=== PATIENT | male | born 1935 | race Caucasian/White ===

== ENCOUNTER 2017-01-02 11:47 | Inpatient (IN) | payer MEDICARE, BC ==
[~2017-01-02] VITALS: Ht 175.3 cm; Wt 94.1 kg
[2017-01-08] VITALS (12 sets, daily range): BP systolic 112–139; BP diastolic 51–82; PULSE 65–105; TEMP 97.5–98.2
[2017-01-08] MEDS ORDERED: LIPITOR 40MG TA40 MG PO (06:27)
[2017-01-08] MEDS ORDERED: ARICEPT10 MG PO (06:27)
[2017-01-08] MEDS ORDERED: FERROUS SU325 MG/TAB PO (06:27)
[2017-01-08] MEDS ORDERED: OMEGA-3 1000 MG1 CAP PO (06:28)
[2017-01-08] MEDS ORDERED: COMPLETE SENIOR1 TA1 PO (06:28)
[2017-01-08] MEDS ORDERED: ASPIRIN E.C. 8181 MG PO (06:28)
[2017-01-08 07:01] LABS: HEMATOCRIT 28.8 % (42.0-52.0); HEMOGLOBIN 8.3 g/dl (13.5-18.0)
[2017-01-09] VITALS (15 sets, daily range): BP systolic 90–155; BP diastolic 50–81; PULSE 45–110; TEMP 97.3–99.6
[2017-01-09 07:53] LABS: MEAN CORPUSCULAR HGB CONC 28 g/dl (33.0-37.0); MEAN PLATELET VOLUME 10.6 fl (7.4-10.4); PLATELET COUNT 266 K/mm3 (130-400); RED BLOOD COUNT 3.63 M/mm3 (4.20-5.60); WHITE BLOOD COUNT 13.7 K/mm3 (4.8-10.8)
[2017-01-09 07:58] LABS: HEMOGLOBIN 7.1 g/dl (13.5-18.0); MEAN CORPUSCULAR HEMOGLOBIN 20 pg (27.0-31.0)
[2017-01-09 08:07] LABS: CREATININE, serum 1.1 mg/dL (0.66-1.25); POTASSIUM 4.1 mmol/L (3.4-5.0)
[2017-01-09 09:34] LABS: MEAN CELL VOLUME 69 fl (80.0-100.0)
[2017-01-09 09:36] LABS: REDCELL DISTRIBUTION WIDTH-CV 19.2 % (11.5-14.5)
[2017-01-09 16:11] LABS: PH 5 (5-8); SQUAMOUS EPITHELIAL None Seen /hpf; URINE APPEARANCE Cloudy; URINE BACTERIA Rare /hpf; URINE BILIRUBIN Negative (NEGATIVE); URINE BLOOD Negative (NEGATIVE); URINE COLOR Yellow; URINE GLUCOSE Negative (NEGATIVE); URINE KETONE Negative (NEGATIVE); URINE RBC 0-2 /hpf; URINE UROBILINOGEN Negative (NEGATIVE); URINE WBC 0-2 /hpf
[2017-01-10 02:33] VITALS: BP 132/62; PULSE 100; TEMP 98.3
[2017-01-10 04:44] VITALS: BP 131/68; PULSE 109; TEMP 96.6
[2017-01-10 07:21] LABS: ADD PATHOLOGY DIFF REVIEW NO
[2017-01-10 07:36] LABS: MEAN CELL VOLUME 73 fl (80.0-100.0); MEAN CORPUSCULAR HGB CONC 30 g/dl (33.0-37.0); MEAN PLATELET VOLUME 10.8 fl (7.4-10.4); PLATELET COUNT 278 K/mm3 (130-400); RED BLOOD COUNT 4.73 M/mm3 (4.20-5.60); REDCELL DISTRIBUTION WIDTH-CV 21.6 % (11.5-14.5); WHITE BLOOD COUNT 15.3 K/mm3 (4.8-10.8)
[2017-01-10 07:47] LABS: CREATININE, serum 1.14 mg/dL (0.66-1.25); POTASSIUM 3.8 mmol/L (3.4-5.0)
[2017-01-10 07:50] LABS: HEMATOCRIT 34.5 % (42.0-52.0); HEMOGLOBIN 10.3 g/dl (13.5-18.0); MEAN CORPUSCULAR HEMOGLOBIN 22 pg (27.0-31.0)
[2017-01-10 09:21] VITALS: BP 114/59; PULSE 103; TEMP 98.4
[2017-01-10 12:59] VITALS: BP 121/57; PULSE 97; TEMP 99
[2017-01-10 13:18] LABS: BAND 12 % (0-10); BASOPHIL 1 % (0-2); NEUTROPHILS 70 % (42.0-75.2); PLATELET ESTIMATE NORMAL (NORMAL); TOTAL CELLS COUNTED 100
[2017-01-10 13:44] LABS: POLYCHROMASIA 1+
[2017-01-10 13:45] LABS: ANISOCYTOSIS 2+; HYPOCHROMIA 2+; MICROCYTOSIS 2+; OVALOCYTES 1+; POIKILOCYTOSIS 2+
[2017-01-10 17:21] VITALS: BP 111/68; PULSE 89; TEMP 98.4
[2017-01-10 21:22] VITALS: BP 119/56; PULSE 101; TEMP 98.4
[2017-01-11 06:29] VITALS: BP 118/61; PULSE 94; TEMP 98.4
[2017-01-11 09:32] VITALS: BP 115/69; PULSE 93; TEMP 98.1
[2017-01-11 13:18] LABS: BASO % 0.4 % (0.0-2.0); EOS # 0.2 (0.0-0.7); EOS % 1.9 % (0-4.0); GRAN # 8.1 (1.4-6.5); GRAN % 77.8 % (42.2-75.2); LYMPH # 1.1 (1.2-3.4); LYMPH % 10.5 % (20.0-51.0); MEAN CELL VOLUME 73 fl (80.0-100.0); MEAN CORPUSCULAR HGB CONC 29 g/dl (33.0-37.0); MEAN PLATELET VOLUME 10.5 fl (7.4-10.4); MONO % 9.1 % (1.7-9.3); PLATELET COUNT 223 K/mm3 (130-400); RED BLOOD COUNT 4.25 M/mm3 (4.20-5.60); REDCELL DISTRIBUTION WIDTH-CV 21.6 % (11.5-14.5); WHITE BLOOD COUNT 10.4 K/mm3 (4.8-10.8)
[2017-01-11 13:20] LABS: MEAN CORPUSCULAR HEMOGLOBIN 21 pg (27.0-31.0)
[2017-01-11 13:53] LABS: CALCIUM 7.4 mg/dL (8.4-10.2); CREATININE, serum 0.88 mg/dL (0.66-1.25); POTASSIUM 3.7 mmol/L (3.4-5.0)
[2017-01-11 14:00] VITALS: BP 107/60; PULSE 87; TEMP 98.3
[2017-01-11 18:19] VITALS: BP 115/63; PULSE 91; TEMP 98.2
[2017-01-11 21:45] VITALS: BP 123/62; PULSE 76; TEMP 98
[2017-01-12 02:05] VITALS: BP 118/58; PULSE 69; TEMP 98.3
[2017-01-12 05:21] VITALS: BP 117/61; PULSE 75; TEMP 97.9
[2017-01-12 10:17] VITALS: BP 110/57; PULSE 89; TEMP 98.2
[2017-01-12] MEDS ORDERED: ROXICODONE 55 MG/TAB PO (10:24)
[2017-01-12] MEDS ORDERED: LEVAQUIN 5500 MG/TA1 PO (10:24)
[2017-01-12 11:30] LABS: BASO # 0.1 (0.0-0.2); BASO % 0.6 % (0.0-2.0); EOS # 0.2 (0.0-0.7); EOS % 2.1 % (0-4.0); GRAN # 6.2 (1.4-6.5); GRAN % 75.7 % (42.2-75.2); LYMPH # 1.1 (1.2-3.4); LYMPH % 13.9 % (20.0-51.0); MEAN CORPUSCULAR HGB CONC 29 g/dl (33.0-37.0); MEAN PLATELET VOLUME 10.3 fl (7.4-10.4); MONO # 0.6 (0.1-0.6); MONO % 7.2 % (1.7-9.3); PLATELET COUNT 247 K/mm3 (130-400); RED BLOOD COUNT 4.48 M/mm3 (4.20-5.60); REDCELL DISTRIBUTION WIDTH-CV 22.3 % (11.5-14.5); WHITE BLOOD COUNT 8.2 K/mm3 (4.8-10.8)
[2017-01-12 11:34] LABS: HEMATOCRIT 32.6 % (42.0-52.0); HEMOGLOBIN 9.4 g/dl (13.5-18.0); MEAN CELL VOLUME 73 fl (80.0-100.0); MEAN CORPUSCULAR HEMOGLOBIN 21 pg (27.0-31.0)
[2017-01-12 11:49] LABS: CALCIUM 7.9 mg/dL (8.4-10.2); CREATININE, serum 0.94 mg/dL (0.66-1.25); POTASSIUM 3.1 mmol/L (3.4-5.0)
[2017-01-12 15:23] VITALS: BP 113/45; PULSE 92; TEMP 98.6
[2017-01-12 17:50] VITALS: BP 120/67; PULSE 92; TEMP 98.2
[2017-01-12 22:28] VITALS: BP 116/68; PULSE 79; TEMP 98.2
[2017-01-13 05:10] VITALS: BP 119/66; PULSE 84; TEMP 98.4
== END 2017-01-13 14:49 | disposition home or self-care (01) | DRG 330 ==
LOC: SURG 01-08 05:35 → INPTSU 01-08 05:35 → SURG 01-08 07:30
PROVIDERS: Surgery
PROC: 0DBB4ZZ Excision of Ileum, Percutaneous Endoscopic Approach (ICD-10-PCS; 2017-01-08)
PROC: 8E0W4CZ Robotic Assisted Procedure of Trunk Region, Percutaneous Endoscopic Approach (ICD-10-PCS; 2017-01-08)
PROC: 0DTF4ZZ Resection of Right Large Intestine, Percutaneous Endoscopic Approach (ICD-10-PCS; principal; 2017-01-08 07:30)
DX: C18.0 Malignant neoplasm of cecum (principal); K91.3 Postprocedural intestinal obstruction; F03.90 Unspecified dementia, unspecified severity, without behavioral disturbance, psychotic disturbance, mood disturbance, and anxiety; D50.0 Iron deficiency anemia secondary to blood loss (chronic)
CPT/HCPCS: A4315; A9284; J0330; J0690; J0694; J1100; J1170; J1650; J1940; J1956; J2370; J2405; J2704; J3010; J7042; J7120; P9016

== ENCOUNTER 2020-10-19 19:41 | Emergency (ER) | payer MEDICARE, BC ==
[~2020-10-19] VITALS: Ht 175.3 cm; Wt 75.0 kg
[~2020-10-19 19:41] MED LIST: ARICEPT10 MG PO; ASPIRIN E.C. 8181 MG PO; COMPLETE SENIOR1 TA1 PO; FERROUS SU325 MG/TAB PO; LEVAQUIN 5500 MG/TA1 PO; LIPITOR 40MG TA40 MG PO; OMEGA-3 1000 MG1 CAP PO; ROXICODONE 55 MG/TAB PO
[2020-10-19 19:42] VITALS: TEMP 96.8
[2020-10-19 20:26] LABS: BASO # 0.1 (0.0-0.2); BASO % 0.6 % (0.0-2.0); EOS # 0.1 (0.0-0.7); EOS % 0.5 % (0-4.0); GRAN # 7.4 (1.4-6.5); GRAN % 76.3 % (42.2-75.2); HEMATOCRIT 45.7 % (42.0-52.0); HEMOGLOBIN 14.7 g/dl (13.5-18.0); LYMPH # 1.6 (1.2-3.4); LYMPH % 16.5 % (20.0-51.0); MEAN CELL VOLUME 96 fl (80.0-100.0); MEAN CORPUSCULAR HEMOGLOBIN 31 pg (27.0-31.0); MEAN CORPUSCULAR HGB CONC 32 g/dl (33.0-37.0); MEAN PLATELET VOLUME 12.1 fl (7.4-10.4); MONO # 0.6 (0.1-0.6); MONO % 5.8 % (1.7-9.3); PLATELET COUNT 234 K/mm3 (130-400); RED BLOOD COUNT 4.76 M/mm3 (4.20-5.60)
[2020-10-19 20:35] LABS: ALBUMIN 3.8 gm/dL (3.5-5.0); CALCIUM 9.1 mg/dL (8.4-10.2); CREATININE, serum 2.06 (0.66-1.25); POTASSIUM 4.2 mmol/L (3.4-5.0); TOTAL PROTEIN 7.2 gm/dL (6.4-8.2)
[2020-10-19 20:47] LABS: TROPONIN-I 0.013 ng/mL (0.000-0.035)
[2020-10-19] MEDS ORDERED: DIFLUCAN 100MG100 MG PO (21:07)
[2020-10-19] MEDS ORDERED: PROTONIX 40MG T40 MG PO (21:08)
[2020-10-19] MEDS ORDERED: ASPIRIN 32325 MG/TAB PO (21:08)
[2020-10-19] MEDS ORDERED: CELEBREX 200MG200 MG PO (21:08)
[2020-10-19] MEDS ORDERED: GLUCOPHAGE XR500 M1 PO (21:10)
[2020-10-19] MEDS ORDERED: NAMENDA 10MG TA10 MG PO (21:10)
[2020-10-19] MEDS ORDERED: ALTACE 10MG TAB10 MG PO (21:11)
[2020-10-19 23:28] LABS: COLLECTION METHOD CLEAN CATCH
[2020-10-19 23:46] LABS: MUCOUS Present /lpf; PH 5 (5-8); SQUAMOUS EPITHELIAL 0-2 /hpf; URINE APPEARANCE Cloudy; URINE BACTERIA Rare /hpf; URINE BILIRUBIN Negative (NEGATIVE); URINE BLOOD 1+ (NEGATIVE); URINE COLOR Amber; URINE GLUCOSE Negative (NEGATIVE); URINE KETONE 1+ (NEGATIVE); URINE LEUKOCYTE ESTERASE Negative (NEGATIVE); URINE NITRATE Negative (NEGATIVE); URINE PROTEIN(semi-quant) 1+ (NEGATIVE); URINE UROBILINOGEN Negative (NEGATIVE)
[2020-10-20 00:54] LABS: ANION GAP 15 mmol/L (7-16); BLOOD UREA NITROGEN 41 mg/dL (9-20); CALCIUM 8.4 mg/dL (8.4-10.2); CARBON DIOXIDE 18 mmol/L (22-30); CHLORIDE 114 mmol/L (98-107); CREATININE, serum 1.82 (0.66-1.25); GLUCOSE 122 mg/dL (74-106); POTASSIUM 3.8 mmol/L (3.4-5.0); SODIUM 147 mmol/L (137-145)
[2020-10-20 01:12] LABS: TROPONIN-I 3 HR POST INITIAL < 0.012 ng/mL (0.000-0.034)
[2020-10-20 05:40] VITALS: BP 114/72; PULSE 88
== END 2020-10-20 05:40 | disposition home or self-care (01) ==
LOC: COL.ER 19:41
PROVIDERS: Emergency Medicine
DX: N17.9 Acute kidney failure, unspecified (principal); C18.9 Malignant neoplasm of colon, unspecified; F03.90 Unspecified dementia, unspecified severity, without behavioral disturbance, psychotic disturbance, mood disturbance, and anxiety; I10 Essential (primary) hypertension; E11.9 Type 2 diabetes mellitus without complications; Z79.82 Long term (current) use of aspirin; Z90.89 Acquired absence of other organs; Z79.84 Long term (current) use of oral hypoglycemic drugs
CPT/HCPCS: J7030

== ENCOUNTER 2020-10-24 11:15 | Emergency (ER) | payer MEDICARE, BC ==
[~2020-10-24] VITALS: Ht 175.3 cm; Wt 75.0 kg
[~2020-10-24 11:15] MED LIST changes: +ALTACE 10MG TAB10 MG PO; +ASPIRIN 32325 MG/TAB PO; +CELEBREX 200MG200 MG PO; +DIFLUCAN 100MG100 MG PO; +GLUCOPHAGE XR500 M1 PO; +NAMENDA 10MG TA10 MG PO; +PROTONIX 40MG T40 MG PO
[2020-10-24 13:22] LABS: BASO # 0.1 (0.0-0.2); BASO % 0.9 % (0.0-2.0); EOS # 0.1 (0.0-0.7); EOS % 0.7 % (0-4.0); GRAN # 6.2 (1.4-6.5); GRAN % 72.1 % (42.2-75.2); HEMATOCRIT 51.1 % (42.0-52.0); HEMOGLOBIN 16.2 g/dl (13.5-18.0); LYMPH # 1.7 (1.2-3.4); LYMPH % 19.5 % (20.0-51.0); MEAN CELL VOLUME 98 fl (80.0-100.0); MEAN CORPUSCULAR HEMOGLOBIN 31 pg (27.0-31.0); MEAN CORPUSCULAR HGB CONC 32 g/dl (33.0-37.0); MEAN PLATELET VOLUME 12.8 fl (7.4-10.4); MONO # 0.5 (0.1-0.6); MONO % 6.3 % (1.7-9.3); PLATELET COUNT 214 K/mm3 (130-400); RED BLOOD COUNT 5.23 M/mm3 (4.20-5.60); REDCELL DISTRIBUTION WIDTH-CV 14.4 % (11.5-14.5)
[2020-10-24 13:36] LABS: ALBUMIN 4.3 gm/dL (3.5-5.0); BILIRUBIN,TOTAL 1.3 mg/dL (0.0-1.0); CALCIUM 9.7 mg/dL (8.4-10.2); CREATININE, serum 1.86 (0.66-1.25); POTASSIUM 4.7 mmol/L (3.4-5.0); TOTAL PROTEIN 8.1 gm/dL (6.4-8.2)
[2020-10-24 15:19] VITALS: BP 106/70; PULSE 88; TEMP 97.6
== END 2020-10-24 16:03 | disposition home or self-care (01) ==
LOC: COL.ER 11:15
PROVIDERS: Physician Assistant
DX: S01.81XA Laceration without foreign body of other part of head, initial encounter (principal); E86.0 Dehydration; E11.22 Type 2 diabetes mellitus with diabetic chronic kidney disease; I12.9 Hypertensive chronic kidney disease with stage 1 through stage 4 chronic kidney disease, or unspecified chronic kidney disease; N18.9 Chronic kidney disease, unspecified; Z85.038 Personal history of other malignant neoplasm of large intestine; Z87.891 Personal history of nicotine dependence; Z88.1 Allergy status to other antibiotic agents; W19.XXXA Unspecified fall, initial encounter; Y92.129 Unspecified place in nursing home as the place of occurrence of the external cause
CPT/HCPCS: J7030